=== PATIENT | male | born 1955 | race Caucasian/White ===

== ENCOUNTER 2016-09-06 14:37 | Emergency (ER) | payer BC ==
[2016-09-06] MEDS ORDERED: ASPIRIN 81 MG TABLET, CHEWABLE PO ONE (14:40)
--- NOTE | 2016-09-06 14:40 | ER Document Report ---
ED Medical Screen (RME) - General Chief Complaint: Chest Pain > 30 Stated Complaint: CHEST PAIN Time seen by provider: 14:40 Mode of Arrival: Ambulatory Information source: Patient Notes: 61-year-old male complaining of TRAVEL OUTSIDE OF THE [place] IN LAST 30 DAYS: No - Related Data Allergies/Adverse Reactions: No Known Allergies Allergy (Verified 09/06/16 14:37) Past Medical History - Past Medical History Cardiac Medical History: Reports: Hx Hypercholesterolemia, Hx Hypertension GI Medical History: Reports: Hx Gastroesophageal Reflux Disease Musculoskeltal Medical History: Reports Hx Arthritis Past Surgical History: Reports: Hx Orthopedic Surgery - Total left hip for arthritic changes. - Immunizations Hx Diphtheria, Pertussis, Tetanus Vaccination: - UNKNOWN
[2016-09-06] MEDS ORDERED: MAG HYDROX/AL HYDROX/SIMETH SUSP 30 ML UDCUP PO ONE (15:23)
[2016-09-06] MEDS ORDERED: LIDOCAINE 2% VISCOUS SOLN 20 ML UDCUP PO ONE (15:23)
--- NOTE | 2016-09-06 15:28 | ER Document Report ---
ED Cardiac <FRANC LARIOS - Last Filed: 09/06/16 16:59> - General Mode of Arrival: Ambulatory Information source: Patient TRAVEL OUTSIDE OF THE [place] IN LAST 30 DAYS: No - HPI Patient complains to provider of: Chest pain Is the pain a: New problem Chest pain radiation location: Back Cardiac risk factors: + Family history <GASTON IGLESIAS - Last Filed: 09/06/16 18:10> - General Chief Complaint: Chest Pain > 30 Stated Complaint: CHEST PAIN Notes: Patient is a 61 year old male that presents to the emergency department today with complaints of elevated blood pressure x1 week with associated chest pain that radiates to the back. Patient also states that he was "about to pass out" on Monday while on the phone at work. Patient states he is on atenolol and amlodipine. (GASTON IGLESIAS) - Related Data Allergies/Adverse Reactions: No Known Allergies Allergy (Verified 09/06/16 14:37) Past Medical History - General Information source: Patient, [facility] Records - Social History Smoking Status: Unknown if Ever Smoked Cigarette use (# per day): No Frequency of alcohol use: None Drug Abuse: None Lives with: Family Family History: Reviewed & Not Pertinent Patient has suicidal ideation: No Patient has homicidal ideation: No - Past Medical History Cardiac Medical History: Reports: Hx Hypercholesterolemia, Hx Hypertension GI Medical History: Reports: Hx Gastroesophageal Reflux Disease Musculoskeltal Medical History: Reports Hx Arthritis Past Surgical History: Reports: Hx Orthopedic Surgery - Total left hip for arthritic changes. - Immunizations Hx Diphtheria, Pertussis, Tetanus Vaccination: - UNKNOWN <GASTON IGLESIAS - Last Filed: 09/06/16 18:10> Review of Systems - Review of Systems Constitutional: No symptoms reported EENT: No symptoms reported Cardiovascular: See HPI, Chest pain - with elevated blood pressure, pain radiates to back Respiratory: No symptoms reported Gastrointestinal: No symptoms reported Genitourinary: No symptoms reported Male Genitourinary: No symptoms reported Musculoskeletal: No symptoms reported Skin: No symptoms reported Hematologic/Lymphatic: No symptoms reported Neurological/Psychological: No symptoms reported -: Yes All other systems reviewed and negative <GASTON IGLESIAS - Last Filed: 09/06/16 18:10> Physical Exam - General General appearance: Appears well, Alert In distress: None - HEENT Head: Normocephalic, Atraumatic Extraocular movements intact: Yes - Respiratory Respiratory status: No respiratory distress Chest status: Nontender Breath sounds: Normal - Cardiovascular Rhythm: Regular Heart sounds: Normal auscultation Murmur: No - Abdominal Distension: No distension Tenderness: Tender - mild epigastric tenderness with palpation - Extremities General upper extremity: Normal inspection, Nontender. No: Edema General lower extremity: Nontender, Edema - trace pedal edema bilaterally - Neurological Neuro grossly intact: Yes Cognition: Normal Orientation: AAOx4 Speech: Normal - Psychological Associated symptoms: Normal affect, Normal mood - Skin Skin Temperature: Warm Skin Moisture: Dry Skin Color: Normal <GASTON IGLESIAS - Last Filed: 09/06/16 18:10> - Vital signs Vitals: Temp Pulse Resp BP Pulse Ox 98.3 F 64 16 140/63 H 98 09/06/16 14:44 09/06/16 14:44 09/06/16 14:44 09/06/16 14:44 09/06/16 14:44 (FRANC LARIOS) (GASTON IGLESIAS) Course - Laboratory Result Diagrams: 09/06/16 15:27 09/06/16 15:27 - Diagnostic Test Radiology reviewed: Image reviewed, Reports reviewed - Chest x-ray is unremarkable - EKG Interpretation by [place] EKG shows normal: Sinus rhythm, [place], Intervals, QRS Complexes, ST-T Waves Rate: Normal - 65 Rhythm: NSR <FRANC LARIOS - Last Filed: 09/06/16 16:59> - Laboratory Result Diagrams: 09/06/16 15:27 09/06/16 15:27 <GASTON IGLESIAS - Last Filed: 09/06/16 18:10> - Re-evaluation Re-evalutation: 09/06/16 16:39 Patient reports noticing relief of his discomfort and ability to take a deep breath without precipitating the discomfort after drinking the GI cocktail. Prior to the GI cocktail, there was some epigastric palpation discomfort. There was no right upper quadrant abdominal discomfort on palpation. There is no chest wall discomfort on palpation. There was epigastric discomfort when taking a deep breath. 09/06/16 16:52 Cardiac enzymes undetectable and the EKG is completely normal. Physical exam, labs, EKG, chest x-ray, response to treatment all suggest this is not a coronary artery disease issue. (FRANC LARIOS) - Vital Signs Vital signs: Temp Pulse Resp BP Pulse Ox 98.6 F 64 20 124/66 99 09/06/16 17:00 09/06/16 14:44 09/06/16 17:00 09/06/16 17:00 09/06/16 17:00 (FRANC LARIOS) (GASTON IGLESIAS) Scribe Documentation - Scribe acting as scribe for :: Josse <GASTON IGLESIAS - Last Filed: 09/06/16 18:10> - Scribe Written by Scribe:: ESTRADA WILBURN 09/06/16 1900 (GASTON IGLESIAS)
[2016-09-06 15:42] LABS: ABSOLUTE EOSINOPHILS # (AUTO) 0.1 10^3/uL (0.0-0.6); ABSOLUTE LYMPHOCYTES (AUTO) 1.6 10^3/uL (0.5-4.7); ABSOLUTE MONOCYTES (AUTO) 0.6 10^3/uL (0.1-1.4); ABSOLUTE NEUT (AUTO) 5.5 10^3/uL (1.7-8.2); BASOPHILS % (AUTO) 0.4 % (0-2); EOSINOPHILS % (AUTO) 0.6 % (0-6); HEMATOCRIT 42.2 % (37.9-51.0); HEMOGLOBIN 14.6 g/dL (13.5-17.0); HGB HCT DIFFERENCE 1.6; MEAN CORPUSCULAR HEMOGLOBIN 30.9 pg (27.0-33.4); MEAN CORPUSCULAR HGB CONC 34.6 g/dL (32.0-36.0); MEAN CORPUSCULAR VOLUME 89 fl (80-97); MONOCYTES % (AUTO) 7.9 % (3-13); RED BLOOD COUNT 4.72 10^6/uL (4.35-5.55); RED CELL DISTRIBUTION WIDTH 13.1 % (11.5-14.0); SEGMENTED NEUTROPHILS % (AUTO) 71.1 % (42-78); WHITE BLOOD COUNT 7.8 10^3/uL (4.0-10.5)
[2016-09-06 16:04] LABS: ALANINE AMINOTRANSFERASE 55 U/L (21-72); ALBUMIN 4.2 g/dL (3.5-5.0); ALKALINE PHOSPHATASE 72 U/L (38-126); ANION GAP 15 (5-19); ASPARTATE AMINO TRANSFERASE 29 U/L (17-59); BLOOD UREA NITROGEN 13 mg/dL (7-20); CALCIUM 9.5 mg/dL (8.4-10.2); CARBON DIOXIDE 23 mmol/L (22-30); CHLORIDE 104 mmol/L (98-107); CREATINE KINASE 166 U/L (55-170); CREATININE RESULT 0.91 mg/dL (0.52-1.25); GLUCOSE 96 mg/dL (75-110); POTASSIUM 4.1 mmol/L (3.6-5.0); SODIUM 141.5 mmol/L (137-145); TOTAL PROTEIN 6.8 g/dL (6.3-8.2)
[2016-09-06 16:46] LABS: TROPONIN I < 0.012 ng/mL
[2016-09-06 17:09] VITALS: BP 124/66
--- NOTE | 2016-09-07 13:40 | EKG REPORT ---
SEVERITY:- NORMAL ECG - SINUS RHYTHM : Confirmed by: Kitty Geiger MD 07-Sep-2016 13:39:01
== END 2016-09-06 17:13 | disposition home or self-care (01) ==
LOC: ER 14:37
DX: K21.9 Gastro-esophageal reflux disease without esophagitis (principal); R07.9 Chest pain, unspecified; R10.816 Epigastric abdominal tenderness; R60.0 Localized edema; I10 Essential (primary) hypertension; Z79.899 Other long term (current) drug therapy
CPT/HCPCS: 93005; 99285; 36415; 82553; 82550; 85025; 80053; 84484; 71010; 93010; J3490

== ENCOUNTER → 2016-09-15 | Outpatient (CLI) | payer BC ==
--- NOTE | 2016-09-15 10:42 | DRAGON STRESS TEST REPORT ---
EXERCISE TREADMILL TEST. DATE OF PROCEDURE: 09/15/2016 INDICATION: Patient with unspecified chest pain. Coronary risk factors: Hypertension, dyslipidemia. Resting EKG: Sinus rhythm, no baseline ST segment changes. Stress EKG: No significant changes noted with with exercise treadmill. Reason for termination: Dyspnea and fatigue. PROCEDURE REPORT: Baseline heart rate: 80 beats per minute with blood pressure of 146/64. Patient had no significant complaints at baseline. Patient was exercised on a standard Amarjit protocol. Patient exercised for total of 7 minutes and 0 seconds. Exercise was stopped because of fatigue and shortness of breath. Patient denied any chest arm or neck discomfort during the exercise, at peak exercise or in recovery. If automatic blood pressure recorded and if felt not accurate manual blood pressure then were recorded at appropriate intervals. Peak heart rate: 149 bpm, 93% of predicted maximum. Peak blood pressure: 199/51 mmHg. Double product: 26.3 Kcal Exercise EKG: Showed some baseline artifact during exercise but no significant ST segment changes noted. CONCLUSIONS: Normal EKG and hemodynamic response to exercise. Average exercise tolerance. Negative EKG changes with exercise. RECOMMENDATIONS: Aggressive risk factor modification, medical therapy. Consider cardiology consultation if clinically indicated. Patient should be informed that occasionally coronary artery disease could be missed. Nathalie Del Castillo M.D., [facility] Assistant hot air furnace installer and repairer, Board certified in cardiovascular diseases, Nuclear cardiology, Echocardiography Cardiac CT and cardiac MRI Ph. [phone] Ph. [phone] [facility]
== END ==
LOC: SP 08:41
PROVIDERS: ATTEND Family Medicine
DX: R07.9 Chest pain, unspecified (principal); R06.00 Dyspnea, unspecified; I10 Essential (primary) hypertension
CPT/HCPCS: 93017

== ENCOUNTER → 2017-02-16 | Outpatient (CLI) | payer BC ==
--- NOTE | 2017-02-16 09:35 | RADIOLOGY REPORT (SQ) ---
EXAM DESCRIPTION: CT HEAD WITHOUT COMPLETED DATE/TIME: 02/16/2017 8:59 am REASON FOR STUDY: HEADACHE, NAUSEA R51 HEADACHE R11.0 NAUSEA COMPARISON: None. TECHNIQUE: Axial images acquired through the brain without intravenous contrast. Images reviewed wi th bone, brain and subdural windows. Images stored on PACS. All CT scanners at this facility use dose modulation, iterative reconstruction, and/or weight based d osing when appropriate to reduce radiation dose to as low as reasonably achievable (ALARA). [facility]: Dose Right [facility]: CareDose [facility]: Dose Right [facility]: Teradose 4D [facility]: [employer] RADIATION DOSE: Up-to-date CT equipment and radiation dose reduction techniques were employed. CTDIv ol: 49.0 mGy. DLP: 881 mGy-cm. mGy. LIMITATIONS: None. FINDINGS: VENTRICLES: Normal size and contour. CEREBRUM: No masses. No hemorrhage. No midline shift. Normal salazar/white matter differentiation. N o evidence for acute infarction. CEREBELLUM: No masses. No hemorrhage. No alteration of density. No evidence for acute infarction. EXTRAAXIAL SPACES: No fluid collections. No masses. ORBITS AND GLOBE: No intra- or extraconal masses. Normal contour of globe without masses. CALVARIUM: No fracture. PARANASAL SINUSES: No fluid or mucosal thickening. SOFT TISSUES: No mass or hematoma. OTHER: No other significant finding. IMPRESSION: NORMAL BRAIN CT WITHOUT CONTRAST. TECHNICAL DOCUMENTATION: JOB ID: [id number] Quality ID # [id number]: Final reports with documentation of one or more dose reduction techniques (e.g., Au tomated exposure control, adjustment of the mA and/or kV according to patient size, use of iterative reconstruction technique) 2010 [employer]- All Rights Reserved
== END ==
LOC: RAD 08:47
PROVIDERS: ATTEND Family Medicine
DX: R51 Headache (principal); R11.0 Nausea
CPT/HCPCS: 70450